=== PATIENT | female | born 2000 | race Two or more races ===

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

== ENCOUNTER 2018-09-24 10:48 | Emergency (ER) | payer MEDICAID ==
[~2018-09-24] VITALS: Ht 172.7 cm; Wt 83.0 kg
[~2018-09-24 10:48] MED LIST: AMOXICILLIN500 MG ORAL; IBUPROFEN600 MG ORAL
[2018-09-24 11:00] VITALS: BP 149/83
[2018-09-24] MEDS ORDERED: NKM (11:00)
--- NOTE | 2018-09-24 11:00 | NUR ---
ED Nurse Note: pt walked in to ED due to sore throat for last 2 days. to painful to swallow or drink. pt also c/o intermittent dry cough. mask provide. AAO x4. respirations even and non-labored noted. skin warm to touch. will wait for the further order.
[2018-09-24] MEDS ORDERED: IBUPROFEN600 MG ORAL (11:26)
[2018-09-24] MEDS ORDERED: AMOXICILLIN500 MG ORAL (11:26)
[2018-09-24 11:35] VITALS: BP 121/76
--- NOTE | 2018-09-24 11:35 | NUR ---
ED Nurse Note: pt cleared to be d/c per ERMD, pt discharge and aftercare instruction w/ prescription provided, pt education done via discussion and handout, pt advised to follow up with pcp or return to ed if changes in condition, pt verbalized understanding and agrees with plan, vss, ambulatory w/ steady gait, left w/ all belongings. pt accompanied by grandmother.
--- NOTE | 2018-09-24 13:53 | Emergency Room Report ---
History of Present Illness General Chief Complaint: Sore Throat Source: Patient Present Illness HPI Patient presents emergency department today complaining of a sore throat. Patient states that she has had a history of pharyngitis in the past. She is getting her symptoms again for the last couple of days. She has subjective fevers and chills and difficulty swallowing. Denies any change in voice. Denies any other complaints except for some mild ear pain bilaterally. She feels that there may be some fluid in there. Denies any cough or runny nose. Symptoms noted to be moderate. No other modifying factors. No other associated signs and symptoms. No other complaints were noted. Allergies: Coded Allergies: No Known Allergies (Unverified , 12/06/16) Patient History Past Medical History: none Past Surgical History: none Pertinent Family History: none Social History: Denies: smoking, alcohol use, drug use Last Menstrual Period: 09/15/18 Reviewed Nursing Documentation: PMH: Agreed; PSxH: Agreed Nursing Documentation-PMH Hx Cardiac Problems: No - anemia Review of Systems All Other Systems: negative except mentioned in HPI Physical Exam Vital Signs Date Time Temp Pulse Resp B/P (MAP) Pulse Ox O2 Delivery O2 Flow Rate FiO2 09/24/18 10:56 99.7 105 18 149/83 (105) 97 Room Air Sp02 EP Interpretation: reviewed, normal General Appearance: normal inspection, well appearing, no apparent distress, alert Head: atraumatic Eyes: bilateral eye normal inspection ENT: hearing grossly normal, normal voice, pharyngeal erythema, tonsillar exudate Neck: normal inspection, full range of motion, supple, no bony tend Respiratory: normal inspection, lungs clear, normal breath sounds, no respiratory distress, no retraction, no wheezing Cardiovascular #1: regular rate, rhythm, no edema Gastrointestinal: normal inspection, normal bowel sounds, non tender, soft, no guarding, no hernia Genitourinary: no CVA tenderness Musculoskeletal: normal inspection, back normal, normal range of motion Neurologic: normal inspection, alert, responsive, speech normal Psychiatric: normal inspection, judgement/insight normal, mood/affect normal Skin: normal inspection, normal color, no rash Medical Decision Making Diagnostic Impression: Primary Impression: Acute bacterial pharyngitis ER Course Patient presents emergency department today complaint sore throat. Differential considerations include pharyngitis, viral syndrome, sinusitis. Patient's exam is consistent with acute bacterial pharyngitis. I felt the patient would benefit from antibiotics. Patient was given a prescription for amoxicillin. Patient is advised to follow up with primary doctor in 2-3 days and return the emergency room for any worsening symptoms and as needed. Last Vital Signs Date Time Temp Pulse Resp B/P (MAP) Pulse Ox O2 Delivery O2 Flow Rate FiO2 09/24/18 11:35 99.5 108 18 121/76 97 Room Air Status: improved Disposition: HOME, SELF-CARE Condition: Stable Scripts Ibuprofen* (MOTRIN*) 600 Mg Tablet 600 MG ORAL Q8H PRN for For Pain, #15 TAB 0 Refills Prov: Hema Garcia MD 09/24/18 Amoxicillin* (AMOXIL*) 500 Mg Capsule 500 MG ORAL THREE TIMES A DAY, #30 CAP Prov: Hema Garcia MD 09/24/18 Referrals: NON PHYSICIAN (PCP) Departure Forms: Return to Work Return to Work Date: Sep 28, 2018 Patient Instructions: Tonsillitis, Sore Throat Hema Garcia MD Sep 24, 2018 13:53
== END 2018-09-24 11:35 | disposition home or self-care (01) ==
LOC: EMR 11:20
DX: J02.8 Acute pharyngitis due to other specified organisms (principal); B96.89 Other specified bacterial agents as the cause of diseases classified elsewhere
CPT/HCPCS: 99283

== ENCOUNTER 2019-10-19 11:48 | Emergency (ER) | payer MEDICAID ==
[~2019-10-19] VITALS: Ht 172.7 cm; Wt 79.4 kg
[~2019-10-19 11:48] MED LIST changes: +NKM
[2019-10-19 11:57] VITALS: BP 144/77
--- NOTE | 2019-10-19 12:07 | NUR ---
ED Nurse Note: Pt. AAOX4. Ambulatory. Pt. walked in to ER from home. Pt. stated she has been having a 8/10 sore throat today. pt. complained of having R ear pain yesterday but not today anymore. No s/s of acute respiratory distress noted at this time
[2019-10-19] MEDS ORDERED: AMOXICILLIN500 MG ORAL (12:10)
--- NOTE | 2019-10-19 12:13 | Emergency Room Report ---
History of Present Illness General Chief Complaint: Sore Throat Source: Patient Present Illness HPI Disclaimer: Please note that this report is being documented using [employer] technology. This can lead to erroneous entry secondary to incorrect interpretation by the dictating instrument. HPI: 18-year-old female presents for evaluation of sore throat. Symptoms present since yesterday. Notes right-sided pain with swallowing. Denies fever. Has a history of recurrent tonsillitis. Does not follow with ENT but is seen by her PMD. Denies recent sick contacts, cough, chest congestion, vomiting, diarrhea. No exacerbating or relieving factors noted. No recent antibiotic use. PMH: Recurrent tonsillitis PSH: Denies Allergies: Denies Social Hx: Denies Allergies: Coded Allergies: No Known Allergies (Unverified , 12/06/16) COVID-19 Screening Contact w/high risk pt: No Recent Travel to affected area: No Experienced COVID-19 symptoms?: Yes COVID-19 symptoms experienced: Flu-Like Symptoms COVID-19 Testing performed GOVERNMENT GUARD: No Patient History Last Menstrual Period: may Nursing Documentation-PMH Past Medical History: No History, Except For Hx Cardiac Problems: No - anemia Review of Systems All Other Systems: negative except mentioned in HPI Physical Exam Vital Signs Date Time Temp Pulse Resp B/P (MAP) Pulse Ox O2 Delivery O2 Flow Rate FiO2 10/19/19 11:57 98.8 89 19 144/77 (99) 97 Room Air General: Awake and alert, no acute distress HEENT: NC/AT. EOMI. uvula is midline. The right tonsil is erythematous, edematous with purulent exudate. Mild edema and erythema of the pharynx. Left tonsil is normal in appearance. Both tonsils are 2+ and nonobstructing of the airway. No stridor, no wheezing. Tolerating secretions. There is tender lymphadenopathy in the right submandibular nodes, negative on the left. Resp: Normal work of breathing Skin: Intact. No abrasions, laceration or rash over the exposed skin MSK: Normal tone and bulk. Moving all extremities. No obvious deformity. Neuro: Awake and alert. Mentating appropriately Medical Decision Making Diagnostic Impression: Primary Impression: Pharyngitis Additional Impression: Tonsillitis ER Course Is a 18-year-old female presenting for evaluation of sore throat. Physical exam is consistent with pharyngitis and tonsillitis and given the patient's history this is most likely. Her Centor score is 3. Will treat with amoxicillin and give dexamethasone in the ED. She will be referred to her PMD for reevaluation on I recommended ENT referral as well given the history of recurrent infections. She is stable for outpatient follow-up in a septic otherwise. I do not believe she requires emergent labs or imaging at this time. Last Vital Signs Date Time Temp Pulse Resp B/P (MAP) Pulse Ox O2 Delivery O2 Flow Rate FiO2 10/19/19 11:57 98.8 89 19 144/77 97 Room Air Disposition: HOME, SELF-CARE Condition: Stable Scripts Amoxicillin* (AMOXIL*) 500 Mg Capsule 500 MG ORAL BID for 10 Days, #20 CAP Prov: Vahid Chappell MD 10/19/19 Referrals: [facility] Patient Instructions: Tonsillitis Additional Instructions: Finish the entire course of antibiotics as prescribed even if symptoms improve over the next few days. Return to the emergency department new or worsening symptoms. Follow-up with your primary care doctor in 1 to 3 days to discuss today's emergency department visit and your recurrent episodes of tonsillitis/ pharyngitis. Vahid Chappell MD Oct 19, 2019 12:13
[2019-10-19 12:15] VITALS: BP 132/75
[2019-10-19] MEDS ORDERED: dexAMETHasone 10mg/ml Inj IV ONE (12:15)
--- NOTE | 2019-10-19 12:15 | NUR ---
ER DISCHARGE NOTE: Patient is cleared to be discharged per ERMD, pt is aox4, on room air, with stable vital signs. pt was given dc and prescription instructions, pt was able to verbalize understanding, pt id band removed. pt is able to ambulate with steady gait. pt took all belongings.
== END 2019-10-19 12:15 | disposition home or self-care (01) ==
LOC: EMR 12:12
DX: J02.9 Acute pharyngitis, unspecified (principal); J03.90 Acute tonsillitis, unspecified
CPT/HCPCS: J8540; Z7502; 99282